=== PATIENT | female | born 1985 | race Caucasian/White ===

== ENCOUNTER 2017-03-26 01:02 | Emergency (ER) | payer MEDICAID ==
[2017-03-26 02:00] VITALS: BP 130/90
== END 2017-03-26 02:00 | disposition home or self-care (01) ==
LOC: ED 01:02
DX: R51 Headache (principal); M54.9 Dorsalgia, unspecified; I10 Essential (primary) hypertension; F32.9 Major depressive disorder, single episode, unspecified; Z88.0 Allergy status to penicillin
CPT/HCPCS: J1885

== ENCOUNTER 2017-03-27 14:56 | Emergency (ER) | payer MEDICAID ==
[~2017-03-27] VITALS: Ht 154.9 cm; Wt 68.9 kg
[2017-03-27 16:46] VITALS: BP 141/104
== END 2017-03-27 16:46 | disposition home or self-care (01) ==
LOC: ED 14:56
DX: G44.209 Tension-type headache, unspecified, not intractable (principal); I10 Essential (primary) hypertension; E03.9 Hypothyroidism, unspecified; Z79.3 Long term (current) use of hormonal contraceptives; Z79.891 Long term (current) use of opiate analgesic; Z79.899 Other long term (current) drug therapy; Z88.8 Allergy status to other drugs, medicaments and biological substances
CPT/HCPCS: 20552; J2001; Q0162

== ENCOUNTER 2017-08-25 23:02 | Emergency (ER) | payer MEDICAID ==
[2017-08-26 01:56] VITALS: BP 160/107
== END 2017-08-26 01:56 | disposition home or self-care (01) ==
LOC: ED 23:02
DX: M50.30 Other cervical disc degeneration, unspecified cervical region (principal); R51 Headache; M25.511 Pain in right shoulder; M25.512 Pain in left shoulder; I10 Essential (primary) hypertension; E07.9 Disorder of thyroid, unspecified; Z88.0 Allergy status to penicillin